=== PATIENT | female | born 1940 | race Caucasian/White ===

== ENCOUNTER → 2018-04-17 | Outpatient (CLI) | payer MEDICARE ==
[~2018-04-17] MED LIST: ARMO60TA PO; LATA0.002 EACH EYE
--- NOTE | 2018-04-18 11:38 | RADRPT ---
EXAM DATE: 04/18/2018 8:16 AM EDT AGE/SEX: 77 years / Female INDICATIONS: Peripheral vascular disease CLINICAL DATA: This is the patient's initial encounter. Patient reports that signs and symptoms have been present for 1 week and indicates a pain score of 2/10. MEDICAL/SURGICAL HISTORY: . Hypothyroid, glaucoma, anxiety, depression, gerd, peripheral vascul ar disease . Bilateral cataract removal, lap cholecystectomy, skin cancer removal face and back COMPARISON: No prior [place] exams available for comparison. TECHNIQUE: Four-cuff ankle and brachial pressures were obtained. Pulse cuff waveform tracings of the ankles were recorded, and ankle-brachial indices were calculated. PRESSURES (mmHg): Brachial (arm) : RIGHT: 134, LEFT: 137 Ankle : RIGHT: 129, LEFT: 115 CAROLINE : RIGHT: 0.94, LEFT: 0.84 TBI : RIGHT: 0.65, LEFT: 0.73 PULSED CUFF WAVEFORMS: Demonstrate normal amplitude bilaterally. CONCLUSION: The CAROLINE on the left is mildly diminished however, the TBI is within normal limits. The overall suspic ion for significant vascular disease is low. The patient has symptoms related to the left leg CT brandon ography and runoff could be performed. The CAROLINE TBI on the right are both within normal limits. Electronically signed by: Anshul Multani MD 04/18/2018 11:37 AM EDT
== END ==
LOC: HCAV 08:30
DX: I73.9 Peripheral vascular disease, unspecified (principal)
CPT/HCPCS: 93922